=== PATIENT | male | born 1980 | race Caucasian/White ===

== ENCOUNTER 2023-09-21 19:54 | Emergency (ER) | payer OTHER ==
[~2023-09-21] VITALS: Ht 167.6 cm; Wt 81.8 kg
[2023-09-21] MEDS ORDERED: CARB15DR91 RIGHT EAR (22:21)
[2023-09-21 22:25] VITALS: BP 130/71; PULSE 79; RESP 16; TEMP 98; O2SAT 98
== END 2023-09-21 23:10 | disposition home or self-care (01) ==
LOC: ER 19:55
DX: H61.23 Impacted cerumen, bilateral (principal); Z79.899 Other long term (current) drug therapy
CPT/HCPCS: 69209; 99282